=== PATIENT | male | born 1955 | race Caucasian/White ===

== ENCOUNTER → 2016-06-10 | Outpatient (CLI) | payer BC ==
[~2016-06-10] MED LIST: EPP3/2 IM; OXYC-57 PO; TAMS0.4C38 PO
--- NOTE | 2016-06-10 13:05 | DIAGNOSTIC IMAGING REPORT ---
KUB CLINICAL HISTORY: Nephrolithiasis. COMPARISON STUDY: None. FINDINGS: Note is made of a 1.1 cm calculus within the lower pole of the right kidney. A subtle 2 mm calcific density within the left hemipelvis is indeterminate. The bowel gas pattern is normal. IMPRESSION: 1. 1.1 cm right renal calculus. 2. Faint 2 mm left pelvic calcification. This statistically represents a phlebolith although a distal left ureteral calculus could appear similar. Electronically signed by: Manuel Addison M.D. 06/10/2016 1:03 PM Dictated Date/Time: 06/10/2016 1:01 PM
== END | disposition home or self-care (01) ==
LOC: C.RAD 12:46
PROVIDERS: ATTEND Urology
DX: N20.0 Calculus of kidney (principal); N28.89 Other specified disorders of kidney and ureter

== ENCOUNTER → 2016-06-25 | Outpatient (CLI) | payer BC ==
--- NOTE | 2016-06-25 15:10 | DIAGNOSTIC IMAGING REPORT ---
KUB CLINICAL HISTORY: N20.0 Nephrolithiasis COMPARISON STUDY: 06/10/2016 FINDINGS: There is a stable 11 mm lower pole right renal calculus. There is no pathologic bowel dilatation. There are few tiny nonspecific pelvic basin calcifications. These include a linear 3 mm right pelvic basin calcification which was not visualized with certainty on the prior study IMPRESSION: 1. 11 mm lower pole right renal calculus 2. Indeterminate pelvic basin calcifications Electronically signed by: Osbaldo Queen M.D. 06/25/2016 3:09 PM Dictated Date/Time: 06/25/2016 3:08 PM
== END | disposition home or self-care (01) ==
LOC: C.RAD 14:51
PROVIDERS: ATTEND Urology
DX: N20.0 Calculus of kidney (principal)

== ENCOUNTER → 2016-06-26 | Day surgery (SDC) | payer BC ==
[2016-06-15 13:01] VITALS: Ht 172.7 cm; Wt 111.4 kg
--- NOTE | 2016-06-23 10:15 | DIAGNOSTIC IMAGING REPORT ---
TWO VIEW CHEST CLINICAL HISTORY: Preoperative examination. Nephrolithiasis. FINDINGS: PA and lateral chest radiographs are obtained. No prior studies are available for comparison at the time of dictation. The heart is normal for projection. The mediastinal contour is within normal limits. There is mild atherosclerotic calcification of the thoracic aorta. There is mild elevation of the right hemidiaphragm. The lungs and pleural spaces are clear. There is no pneumothorax. The bony thorax appears intact. There is S-shaped thoracolumbar scoliosis. IMPRESSION: No active disease in the chest. Electronically signed by: Johnson Peoples M.D. 06/23/2016 10:14 AM Dictated Date/Time: 06/23/2016 10:12 AM
[2016-06-23 10:18] LABS: BASO % 0.3 %; BASO ABS # 0.02 K/uL (0-0.2); COMPLETE YES; EOS % 2.2 %; HEMATOCRIT 44.6 % (42-52); IG% 0.3 %; LYMPH % 30.2 %; MEAN CELL VOLUME 86.9 fL (80-100); MEAN CORPUSCULAR HEMOGLOBIN 29.4 pg (25-34); MEAN CORPUSCULAR HGB CONC 33.9 g/dl (32-36); MEAN PLATELET VOLUME 9.8 fL (7.4-10.4); MONO % 7.4 %; NEUT % 59.6 %; PLATELET COUNT 270 K/uL (130-400); RED BLOOD COUNT 5.13 M/uL (4.7-6.1); WHITE BLOOD COUNT 7.28 K/uL (4.8-10.8)
[2016-06-23 10:21] LABS: URINE APPEARANCE CLEAR (CLEAR); URINE BILIRUBIN NEG (NEG); URINE COLOR YELLOW; URINE NITRITE NEG (NEG); UROBILINOGEN NEG (NEG)
[2016-06-23 10:31] LABS: MANUAL MICROSCOPIC REQUIRED? NO; REVIEW REQ? NO
[2016-06-23 10:45] LABS: BLOOD UREA NITROGEN 18 mg/dl (7-18); CALCIUM 9.2 mg/dl (8.5-10.1); CARBON DIOXIDE 25 mmol/L (21-32); CHLORIDE 107 mmol/L (98-107); GLUCOSE 108 mg/dl (70-99); SODIUM 140 mmol/L (136-145)
[2016-06-23 10:49] LABS: PROSTATE SPECIFIC ANTIGEN < 0.010 ng/ml (0.000-4.000)
[~2016-06-26] VITALS: Ht 172.7 cm; Wt 111.4 kg
[~2016-06-26] MED LIST changes: +ATROPINE SULFATE 0.1 MG/ML 5ML SYR IV PRN; +CIPROFLOXACIN 400MG / D5W IV SCH; +DEXAMETHASONE SOD INJ 4 MG/ML VIAL IV PRN; +DEXAMETHASONE SOD INJ 4 MG/ML VIAL ONE; +EpHEDrine SULFATE INJ 50 MG/ML AMP IV PRN; +FENTANYL CITRATE INJ 50 MCG/1 ML 2 ML VIAL IV PRN; +FENTANYL CITRATE INJ 50 MCG/1 ML 2 ML VIAL ONE; +KETOROLAC TROMETHAMINE 30 MG/ML VIAL IV. PRN; +LABETALOL HCL IV 5 MG/ML 20ML IV PRN; +LACTATED RINGER'S 1000ML 1,000 ML IV SCH; +LIDOCAINE HCL 2% 2 ML VIAL (20MG/ML) ONE; +METOCLOPRAMIDE HCL INJ 5 MG/ML 2 ML VIAL IV PRN; +MIDAZOLAM HCL 1 MG/ML 2ML VIAL ONE; +MoRPHine SULFATE 10 MG/ML CARP/VIAL IV PRN; +ONDANSETRON INJ 2 MG/ML 2 ML VIAL IV PRN; +ONDANSETRON INJ 2 MG/ML 2 ML VIAL ONE; +OXYCODONE/ACETAMINOPHEN 5-325 TAB PO PRN; +PHENYLEPHRINE 100MCG/ML 5ML SYR IV PRN; +PROPOFOL IV EMULSION 10 MG/ML 20 ML VIAL IV ONE
--- NOTE | 2016-06-26 10:55 | History & Physical Bridge Note ---
H&P Re-Evaluation Bridge Note: I have examined the patient, reviewed the History & Physical and in the interval since the performance of the History & Physical I have noted the following changes of clinical significance: No changes noted
--- NOTE | 2016-06-26 11:33 | [facility] Post Operative Brief Note ---
Immediate Operative Summary Operative Date Jun 26, 2016. Pre-Operative Diagnosis RIGHT RENAL STONE Post-Operative Diagnosis SAME Procedure(s) Performed RIGHT ESWL Surgeon COLTON Floors Buffer Surgeon(s) NONE Estimated Blood Loss NONE Findings RIGHT RENAL STONE Specimens NONE
--- NOTE | 2016-06-26 11:36 | Discharge Instructions-SurgCtr ---
Discharge Instructions Visit Reason for Visit: Stones;Prostate Cancer R61;N20.0, Discharge Discharge Diagnosis / Problem: STONE Discharge Goals Goal(s): Therapeutic intervention Activity Recommendations Activity Limitations: resume your previous activity (TAKE IT EASY TODAY) Anesthesia . Post Anesthesia Instructions: If you have had General Anesthesia or IV Sedation: * Do not drive today. * Resume driving when surgeon permits. * Do not make important decisions or sign legal documents today. * Call surgeon for: 1. Temperature elevations greater than 101 degrees F. 2. Uncontrollable pain. 3. Excessive bleeding. 4. Persistent nausea and vomiting. 5. Medication intolerance (nausea, vomiting or rash). * For nausea and vomiting use only clear liquids such as: tea, soda, bouillon until nausea subsides, then gradually increase diet as tolerated. * If you have any concerns or questions, call your surgeon's office. If physician is unavailable and it is an emergency, call 911 or go to the nearest emergency room. . Instructions / Follow-Up Instructions / Follow-Up MEDICATIONS: Resume previous medications unless instructed otherwise by your surgeon. Resume pre-ESWL medication except for aspirin, coumadin or other blood thinners. __ Toradol 10 mg every 6 hours for initial pain. __ Lortab 5 mg 1-2 every 4 hours for pain. _X_ Percocet 5 mg 1-2 every 4 hours for pain. __ Macrodantin 50 mg x 3 a day. _X_ Flomax 1 tab daily one half (1/2) hour after supper. SPECIAL CARE INSTRUCTIONS: 1. Get KUB (x-ray) _X_ day before or day of office visit and bring x-ray to office __ get x-ray 2 days before and tell office you are getting x-rays when you call for the appointment. 2. Strain ALL urine. 3. Please call if you have a fever, chills, severe pain, or constant dribbling of urine. 4. Office phone number . FOLLOW UP VISIT: Please call the office to schedule a follow-up appointment at . Diet Recommendations Home Diet: resume previous diet Procedures Procedures Performed: RIGHT ESWL Pending Studies Studies pending at discharge: no Medical Emergencies . Who to Call and When: Medical Emergencies: If at any time you feel your situation is an emergency, please call 911 immediately. . Non-Emergent Contact Non-Emergency issues call your: Urologist . . "Provider Documentation" section prepared by Johnny Lauren. [facility] Drug Monitoring Program Search Results: patient reviewed within database
[2016-06-26 13:14] VITALS: TEMP 36.8
[2016-06-26 13:37] VITALS: BP 124/82; PULSE 77; O2SAT 96
--- NOTE | 2016-06-26 13:43 | Anesthesia Progress Nt - [facility] ---
Anesthesia Post Op Note Date & Time Jun 26, 2016 at 13:43 Vital Signs Pain Intensity: 0 Vital Signs Past 12 Hours Date Time Temp Pulse Resp B/P Pulse Ox O2 Delivery O2 Flow Rate FiO2 06/26/16 13:37 77 16 124/82 96 Room Air 06/26/16 13:14 36.8 72 16 145/89 95 Room Air 06/26/16 13:04 79 23 06/26/16 13:04 79 23 96 06/26/16 13:04 36.4 71 20 129/75 95 Room Air 06/26/16 13:03 129/75 06/26/16 12:59 81 14 128/73 95 06/26/16 12:59 83 14 06/26/16 12:54 66 14 06/26/16 12:54 65 14 94 06/26/16 12:53 106/71 06/26/16 12:49 73 15 93 06/26/16 12:49 72 15 06/26/16 12:48 123/73 06/26/16 12:44 74 14 94 06/26/16 12:44 74 14 06/26/16 12:43 108/73 06/26/16 12:39 71 14 100 06/26/16 12:39 71 14 06/26/16 12:38 118/79 06/26/16 12:35 74 14 06/26/16 12:35 74 14 99 06/26/16 12:33 129/82 06/26/16 12:30 86 15 06/26/16 12:30 36.4 81 16 132/77 98 Diffusion Mask 6 06/26/16 12:30 84 15 06/26/16 10:01 36.4 73 16 166/102 98 Room Air Notes Mental Status: alert / awake / arousable, participated in evaluation Pt Amnestic to Procedure: Yes Nausea / Vomiting: adequately controlled Pain: adequately controlled Airway Patency, RR, SpO2: stable & adequate BP & HR: stable & adequate Hydration State: stable & adequate Anesthetic Complications: no major complications apparent
--- NOTE | 2016-06-30 18:46 | OPERATIVE REPORT ---
DATE OF OPERATION: 06/26/2016 PREOPERATIVE DIAGNOSIS: Right renal calculus. POSTOPERATIVE DIAGNOSIS: Same. PROCEDURE: Extracorporeal shockwave lithotripsy. FINDINGS: KUB showed stone right kidney. SURGEON: Dr. Lauren. ANESTHESIA: General. DRAINS: None. COMPLICATIONS: None. SPECIMENS: None. INDICATIONS: The patient is a 60-year-old white male with a right renal stone being brought in for ESWL. DETAILS OF PROCEDURE: The patient was brought to the litho suite. He was correctly identified and the stone was visualized on his most recent x-rays. After the correct time out was performed the patient was positioned over the therapy head. An adequate level of anesthesia was administered. The extracorporeal shockwave lithotripsy treatment was then commenced. Please see the [facility] sheet for complete treatment summary. After completion of the procedure the patient was taken to the recovery room in stable condition. I attest to the content of the Intraoperative Record and any orders documented therein. Any exceptio ns are noted below.
== END | disposition home or self-care (01) ==
LOC: X.SURG 09:49
PROVIDERS: ATTEND Urology
DX: N20.0 Calculus of kidney (principal); R32 Unspecified urinary incontinence; Z85.46 Personal history of malignant neoplasm of prostate; Z98.890 Other specified postprocedural states; Z79.82 Long term (current) use of aspirin

== ENCOUNTER → 2016-07-08 | Outpatient (CLI) | payer BC ==
[~2016-07-08] MED LIST changes: -ATROPINE SULFATE 0.1 MG/ML 5ML SYR IV PRN; -CIPROFLOXACIN 400MG / D5W IV SCH; -DEXAMETHASONE SOD INJ 4 MG/ML VIAL IV PRN; -DEXAMETHASONE SOD INJ 4 MG/ML VIAL ONE; -EpHEDrine SULFATE INJ 50 MG/ML AMP IV PRN; -FENTANYL CITRATE INJ 50 MCG/1 ML 2 ML VIAL IV PRN; -FENTANYL CITRATE INJ 50 MCG/1 ML 2 ML VIAL ONE; -KETOROLAC TROMETHAMINE 30 MG/ML VIAL IV. PRN; -LABETALOL HCL IV 5 MG/ML 20ML IV PRN; -LACTATED RINGER'S 1000ML 1,000 ML IV SCH; -LIDOCAINE HCL 2% 2 ML VIAL (20MG/ML) ONE; -METOCLOPRAMIDE HCL INJ 5 MG/ML 2 ML VIAL IV PRN; -MIDAZOLAM HCL 1 MG/ML 2ML VIAL ONE; -MoRPHine SULFATE 10 MG/ML CARP/VIAL IV PRN; -ONDANSETRON INJ 2 MG/ML 2 ML VIAL IV PRN; -ONDANSETRON INJ 2 MG/ML 2 ML VIAL ONE; -OXYCODONE/ACETAMINOPHEN 5-325 TAB PO PRN; -PHENYLEPHRINE 100MCG/ML 5ML SYR IV PRN; -PROPOFOL IV EMULSION 10 MG/ML 20 ML VIAL IV ONE; -TAMS0.4C38 PO
--- NOTE | 2016-07-08 09:56 | DIAGNOSTIC IMAGING REPORT ---
KUB CLINICAL HISTORY: N20.0 [id number] COMPARISON STUDY: 06/25/2016 FINDINGS: There is no pathologic bowel dilatation. There is been interval fragmentation of the previously identified lower pole right renal calculus. Multiple calcific fragments project over the lower pole the right kidney. In addition, there is a cluster of calcifications measuring 1 cm in aggregate at the L2-3 level. The findings are consistent with proximal right ureteral calculi. IMPRESSION: 1. Apparent interval fragmentation of the previously identified lower pole right renal calculus 2. Multiple stone fragments, likely positioned at the level of the right ureterovesical junction at the L2-3 level. Electronically signed by: Osbaldo Queen M.D. 07/08/2016 9:55 AM Dictated Date/Time: 07/08/2016 9:53 AM
== END | disposition home or self-care (01) ==
LOC: C.RAD 09:28
PROVIDERS: ATTEND Urology
DX: N20.0 Calculus of kidney (principal)

== ENCOUNTER → 2016-07-20 | Outpatient (CLI) | payer BC | END | disposition home or self-care (01) | LOC: C.RDSM 14:34 | PROVIDERS: ATTEND Physical Medicine & Rehabilitation Sports Medicine | DX: M25.561 Pain in right knee (principal); M25.562 Pain in left knee ==

== ENCOUNTER → 2016-10-28 | Outpatient (CLI) | payer BC ==
--- NOTE | 2016-10-28 14:45 | DIAGNOSTIC IMAGING REPORT ---
RIGHT KNEE MRI HISTORY: R KNEE PAIN Right COMPARISON STUDY: Right knee 07/20/2016. TECHNIQUE: Multiplanar multisequence MRI of the right knee was performed according to standard department protocol without the use of contrast. FINDINGS: Menisci: The lateral meniscus is intact. The complex tear at the posterior horn of the medial meniscus. There is a small meniscal fragment along the superior border of the posterior horn of the medial meniscus near the meniscal root. This measures approximately 7 mm in size. This is best seen on coronal image 22 and sagittal image 14. Ligaments: Mild thickening of the proximal MCL which may be due to an old injury. The ACL, PCL, and LCL are intact. Extensor mechanism: The quadriceps tendon and patellar ligament are intact. Articular cartilage and bone: No fracture or dislocation. Focal full-thickness cartilage defect within the median ridge of the patella measuring 7 mm in size. There is underlying subchondral cystic change within the mid patella. The medial and lateral femorotibial cartilage compartments of the knee are relatively intact. Joint effusion: Small to moderate Soft tissues: A 5.8 x 2.6 x 1.2 cm popliteal cyst. Diffuse subcutaneous edema within the knee. This is most pronounced anterior to the patellar ligament. IMPRESSION: 1. Complex tear within the posterior horn of the medial meniscus with a small fragment along the superior border of the posterior horn of the meniscus as described above. 2. Patellar chondromalacia. 3. The patellar ligament is intact. 4. Small to moderate joint effusion. 5. Mild thickening within the proximal MCL which favors an old injury. 6. Diffuse subcutaneous edema most pronounced within the anterior knee. Electronically signed by: Jim Swanson M.D. 10/28/2016 2:43 PM Dictated Date/Time: 10/28/2016 2:33 PM
== END | disposition home or self-care (01) ==
LOC: C.MRI 13:34
PROVIDERS: ATTEND Physician Assistant
DX: M25.561 Pain in right knee (principal)

== ENCOUNTER → 2017-04-01 | Outpatient (CLI) | payer BC ==
[~2017-04-01] MED LIST changes: -OXYC-57 PO
== END | disposition home or self-care (01) ==
LOC: C.RDSM 12:51
PROVIDERS: ATTEND Physical Medicine & Rehabilitation Sports Medicine
DX: M17.11 Unilateral primary osteoarthritis, right knee (principal); M25.562 Pain in left knee

== ENCOUNTER 2018-09-26 07:59 | Inpatient (IN) ==
[2018-09-26] MEDS ORDERED: MoRPHine SULFATE 4 MG/ML 1 ML CARP\\VIAL IV PRN (08:46)
[2018-09-26 08:56] LABS: Basophils # (auto) 0.01 K/uL (0-0.2); Basophils % (auto) 0.1 %; Eosinophils # (auto) 0.42 K/uL (0-0.5); Eosinophils % (auto) 5.2 %; Hematocrit (blood only) 42.1 % (42-52); Hemoglobin 14.7 g/dL (14.0-18.0); Immature Granulocytes # (auto) 0.02 K/uL (0.00-0.02); Immature Granulocytes % (auto) 0.2 %; Lymphocytes # (auto) 2.37 K/uL (1.2-3.4); Lymphocytes % (auto) 29.3 %; Mean Corpuscular Hgb Conc 34.9 g/dL (32-36); Mean Platelet Volume 9.7 fL (7.4-10.4); Monocytes # (auto) 0.72 K/uL (0.11-0.59); Monocytes % (auto) 8.9 %; Neutrophils # (auto) 4.55 K/uL (1.4-6.5); Neutrophils % (auto) 56.3 %; Platelet Count 257 K/uL (130-400); RDW Standard Deviation 44.6 fL (36.4-46.3); Red Blood Count 4.84 M/uL (4.7-6.1); White Blood Count 8.09 K/uL (4.8-10.8)
[2018-09-26 09:03] LABS: BUN Creatinine Ratio 24.6 (10-20); Calcium 8.9 mg/dl (8.5-10.1); Creatinine Clr Calc Pharmacy 122.7 ml/min; Est GFR (African American) 110.8; Est GFR (Non-African American) 95.6; Potassium 4.2 mmol/L (3.5-5.1)
--- NOTE | 2018-09-26 09:41 | Emergency Department Note ---
History of Present Illness General Chief complaint: Back Injury/Pain Stated complaint: leg & back pain Time Seen by Provider: 09/26/18 08:27 History of Present Illness Maximum Pain Intensity: 2 Patient is a 63-year-old male who presents the emergency department via ALS ambulance and accompanied by his for evaluation of the abrupt onset of left low back pain radiating into the left leg this morning. The patient has been experiencing some radicular low back pain since the end of August. He has been under the care of [facility]. He had an MRI on 09/14/2018 which showed a L2-L3 disc herniation with fragment extrusion. He underwent an epidural steroid injection performed by Dr. Cottrell on 09/22/2018. He has been on Aleve, baclofen and gabapentin. Patient reports that he was doing well in the first few days after the injection, then had some increased achiness yesterday. He was getting up this morning to get ready for work, when he states that the pain returned and was much worse than prior to his injection. He reports an aching pain in his low back that radiates down his left leg. He reports weakness in his left quad, and has some chronic numbness in the left lower extremity. He states that the pain was an 8/10 at home, he received morphine 5 mg and Zofran 4 mg IV en route and he is now comfortable, rating his pain a 2/10. He has stress urinary incontinence status post prostatectomy for prostate cancer, denies any changes in this. No gross bowel or bladder incontinence. No saddle anesthesias. He states that he did review his MRI with Dr. Laboy. Home Medications Home Medications Medication Instructions Recorded Confirmed Type baclofen 10 mg tablet 10 mg PO BID PRN #60 tab 09/07/18 09/26/18 Rx naproxen sodium 220 mg capsule 220 mg PO BID PRN 09/07/18 09/26/18 History gabapentin 100 mg capsule 200 mg PO TID #180 cap 09/16/18 09/26/18 Rx Allergies Allergy/AdvReac Type Severity Reaction Status Date / Time cheese Allergy Severe SHARP Verified 09/26/18 10:50 CHEESE: HIVES AND SOB No Known Drug Allergies Allergy Mild . Verified 09/26/18 10:50 Past Med/Surg History Medical History Lumbar back pain with radiculopathy affecting left lower extremity (Chronic) Obesity (Chronic) Prostate cancer (Resolved) Status post prostatectomy 2010 Fracture dislocation of joint of toe of right foot (Resolved) Patellar tendon rupture (Resolved) Left side, status post surgical repair Renal stones (Resolved) Surgical History History of arthroscopy of left knee (Resolved) History of carpal tunnel release (Resolved) Right History of lithotripsy (Resolved) History of orthopedic surgery (Resolved) Right ankle arthroscopy History of tonsillectomy (Resolved) Family History Father No problems noted. Social History Preferred Language: Maltese marital status: Current Living Situation: Spouse current occupational status: employed Feels Safe at Home: Yes Smoking Status: Never smoker Hx Alcohol Use: Yes Alcohol type: beer Hx Substance Use: No Review of Systems A total of 10 systems reviewed and were otherwise negative Physical Exam Vital Signs Vital Signs - 24 hr 09/26/18 07:59 09/26/18 09:13 09/26/18 10:08 Temperature 36.5 C Temperature Source Oral Sepsis Recent Fever Within 48 Hours No Sepsis New/Unexplained Change in Mental Status No Sepsis Action Taken by Nursing No Action Required Pulse Rate 73 Pulse Rate [Right Finger] 73 66 118 H Pulse Rhythm [Right Finger] Pulse Strength [Right Finger] Respiratory Rate 18 20 24 Respiratory Effort / Characteristics Non-Labored Spontaneous Non-Labored Respiratory Depth Normal Normal Respiratory Pattern Regular Blood Pressure 144/94 H Blood Pressure [Left Arm] 144/94 H 157/92 H 149/92 H Blood Pressure Mean 110 Blood Pressure Mean [Left Arm] 110 113 111 Blood Pressure Position Lying Blood Pressure Position [Left Arm] Lying Pulse Oximetry 95 95 99 Oxygen Delivery Method Room Air Room Air Room Air 09/26/18 12:23 09/26/18 12:56 Temperature 36.3 C L Temperature Source Oral Sepsis Recent Fever Within 48 Hours Sepsis New/Unexplained Change in Mental Status Sepsis Action Taken by Nursing Pulse Rate Pulse Rate [Right Finger] 63 69 Pulse Rhythm [Right Finger] Regular Pulse Strength [Right Finger] Normal Respiratory Rate 16 18 Respiratory Effort / Characteristics Non-Labored Spontaneous Respiratory Depth Normal Respiratory Pattern Regular Blood Pressure Blood Pressure [Left Arm] 132/83 147/75 H Blood Pressure Mean Blood Pressure Mean [Left Arm] 99 99 Blood Pressure Position Blood Pressure Position [Left Arm] Standing Pulse Oximetry 95 94 Oxygen Delivery Method Room Air Room Air PHYSICAL EXAM: Vital Signs: Reviewed Nurse's notes. CONSTITUTIONAL: Patient is a well-appearing 63-year-old male who is awake and alert and in no acute distress. is at the bedside. CARDIOVASCULAR: Regular rate and rhythm, with normal S1 and S2, no murmur or gallop or rub is heard. No carotid bruits auscultated. No JVD. Peripheral pulses easily palpable. RESPIRATORY: Breath sounds equal and clear to auscultation without wheezes, rales, or rhonchi heard. Full and equal chest expansion without accessory muscle use or retractions. ABDOMEN: Bowel sounds are present. Abdomen is soft, nontender and nondistended. INTEGUMENTARY: No lesions or rash, normal skin turgor. LYMPH: No lymphadenopathy. SPINE: Examination of the patient's back does not demonstrate any ecchymosis, abrasions or outward signs of trauma. No erythema, increased warmth or induration. Patient has midline discomfort to palpation over the low lumbar spine. There is no pain over the SI joint or the sciatic notch. He has increa sed pain with range of motion including rotation and flexion. EXTREMITIES: Leg lengths are symmetrical. Well-healed anterior left knee surgical scar. Calves are soft and nontender. Distal pulses are easily palpable. Left patellar reflex difficult to assess secondary to postsurgical status. Sensation light touch is intact over the lower extremities bilaterally. Course The patient was seen and assessed as above. His old records were reviewed, specifically his recent MRI and pain management visits. He presents the emergency department for evaluation of left low back pain radiating into the left leg with a known L2-3 disc herniation. He is comfortable at the time of my examination after receiving morphine and Zofran en route. He declined any additional medication needs at the time of assessment. Treatment options were discussed with him including medications including IV NSAIDs and steroids. He would like to consult with Dr. Laboy of orthopedic spine surgery, which is certainly reasonable. The patient was made n.p.o. Basic laboratory studies, EKG and chest x-ray were obtained for presumptive preoperative clearance. I was able to review the patient with Dr. Laboy, who requested repeat MRI which was ordered. The patient was made aware of this. The patient was medicated with additional morphine 4 mg and Valium 5 mg IV prior to MRI. Patient's preoperative chest x-ray, EKG and laboratory studies were all reviewed and were unremarkable. Lumbar spine MRI again demonstrated mild broad-based disc herniation at L2-L3 with a 1.2 cm extruded fragment occupying the left lateral recess. It appears to be unchanged from prior study. At this point, emergency department staff were contacted by the operating room, as there are plans for surgical intervention today. Patient will be taken to the OR by Dr. Laboy. Please refer to his H&P for further information. Administered Medications Discontinued Medications Diazepam (Valium) 5 mg IV NOW STA Stop: 09/26/18 10:57 Last Admin: 09/26/18 11:03 Dose: 5 mg Documented by: [id number] Morphine Sulfate (Morphine Sulfate) 4 mg IV NOW STA Stop: 09/26/18 10:57 Last Admin: 09/26/18 11:03 Dose: 4 mg Documented by: [id number] Medical Decision Making Differential Diagnosis Differential diagnoses include disc herniation, acute compression syndrome, cauda equina, diskitis, epidural abscess, hematoma among others. Medical Records Attestation: I reviewed the patient's medical records. Home Medications Current Medication List: was personally reviewed by me Laboratory Data Attestation: I reviewed the patient's lab results. Result diagrams: 09/26/18 08:05 09/26/18 08:05 Lab Results 09/26/18 09/26/18 09/26/18 Range/Units 08:05 08:05 08:05 WBC 8.09 (4.8-10.8) K/uL RBC 4.84 (4.7-6.1) M/uL Hgb 14.7 (14.0-18.0) g/dL Hct 42.1 (42-52) % MCV 87.0 (80-100) fL MCH 30.4 (25-34) pg MCHC 34.9 (32-36) g/dL RDW Std Deviation 44.6 (36.4-46.3) fL RDW Coeff of Barak 14.0 (11.5-14.5) % Plt Count 257 (130-400) K/uL MPV 9.7 (7.4-10.4) fL Immature Gran % (Auto) 0.2 % Neut % (Auto) 56.3 % Lymph % (Auto) 29.3 % Kaufman % (Auto) 8.9 % Eos % (Auto) 5.2 % Baso % (Auto) 0.1 % Immature Gran # (Auto) 0.02 (0.00-0.02) K/uL Neut # (Auto) 4.55 (1.4-6.5) K/uL Lymph # (Auto) 2.37 (1.2-3.4) K/uL [place]aufman # (Auto) 0.72 H (0.11-0.59) K/uL Eos # (Auto) 0.42 (0-0.5) K/uL Baso # (Auto) 0.01 (0-0.2) K/uL PT Cancelled INR Cancelled APTT Cancelled PTT Ratio Cancelled Sodium 141 (136-145) mmol/L Potassium 4.2 (3.5-5.1) mmol/L Chloride 109 H (98-107) mmol/L Carbon Dioxide 26 (21-32) mmol/L Anion Gap 6.0 (3-11) BUN 19 H (7-18) mg/dl Creatinine 0.79 (0.6-1.4) mg/dl Est Cr Clr Drug Dosing 122.7 ml/min Est GFR ( Amer) 110.8 Est GFR (Non-Af Amer) 95.6 BUN/Creatinine Ratio 24.6 H (10-20) Glucose 118 H (70-99) mg/dl Calcium 8.9 (8.5-10.1) mg/dl Urine Color Urine Appearance (Clear) Urine pH (4.5-7.5) Ur Specific [place] (1.000-1.030) Urine Protein (Negative) Urine Glucose (UA) (Negative) Urine Ketones (Negative) Urine Blood (Negative) Urine Nitrite (Negative) Urine Bilirubin (Negative) Urine Urobilinogen (Negative) Ur Leukocyte Esterase (Negative) 09/26/18 Range/Units 11:05 WBC (4.8-10.8) K/uL RBC (4.7-6.1) M/uL Hgb (14.0-18.0) g/dL Hct (42-52) % MCV (80-100) fL MCH (25-34) pg MCHC (32-36) g/dL RDW Std Deviation (36.4-46.3) fL RDW Coeff of Barak (11.5-14.5) % Plt Count (130-400) K/uL MPV (7.4-10.4) fL Immature Gran % (Auto) % Neut % (Auto) % Lymph % (Auto) % Kaufman % (Auto) % Eos % (Auto) % Baso % (Auto) % Immature Gran # (Auto) (0.00-0.02) K/uL Neut # (Auto) (1.4-6.5) K/uL Lymph # (Auto) (1.2-3.4) K/uL [place] # (Auto) (0.11-0.59) K/uL Eos # (Auto) (0-0.5) K/uL Baso # (Auto) (0-0.2) K/uL PT INR APTT PTT Ratio Sodium (136-145) mmol/L Potassium (3.5-5.1) mmol/L Chloride (98-107) mmol/L Carbon Dioxide (21-32) mmol/L Anion Gap (3-11) BUN (7-18) mg/dl Creatinine (0.6-1.4) mg/dl Est Cr Clr Drug Dosing ml/min Est GFR ( Amer) Est GFR (Non-Af Amer) BUN/Creatinine Ratio (10-20) Glucose (70-99) mg/dl Calcium (8.5-10.1) mg/dl Urine Color Yellow Urine Appearance Clear (Clear) Urine pH 6.5 (4.5-7.5) Ur Specific [place] 1.019 (1.000-1.030) Urine Protein Negative (Negative) Urine Glucose (UA) Negative (Negative) Urine Ketones Negative (Negative) Urine Blood Negative (Negative) Urine Nitrite Negative (Negative) Urine Bilirubin Negative (Negative) Urine Urobilinogen Negative (Negative) Ur Leukocyte Esterase Negative (Negative) Imaging Data Attestation: I personally reviewed and interpreted this imaging study as follows: Radiologist's Impression: MR lumbar spine wo con HISTORY: Pain. Neuropathy. LEFT LUMBAR RADICULOPATHY TECHNIQUE: Multiplanar multisequence MRI of the lumbar spine was performed without the use of contrast. COMPARISON: 09/14/2018 FINDINGS: For the purpose of the report the L5-S1 disc space will be located on axial image 26 of 30. Normal signal characteristics of the vertebral bodies. Mild degenerative disc desiccation throughout. L1-L2: No significant central canal or neural foraminal narrowing. L2-L3: Mild broad-based disc herniation with an extruded disc fragment occupying the left lateral recess. The disc fragment measures 21.2 cm and impacts the left-sided nerve roots. This appearance is unchanged from the prior exam. L3-L4: Minimal disc bulge. No impact upon the thecal sac. L4-L5: Mild central disc bulge. Minimal impact anterior thecal sac. No change from the prior study. L5-S1: Mild left central disc bulge. Minimal impact anterior thecal sac and minimal narrowing left neuroforamina. IMPRESSION: 1. Mild broad-based disc herniation L3-L4 with a 1.2 cm extruded disc fragment occupying the left lateral recess. 2. This is unchanged compared to the prior study. 3. Minimal disc bulges at several additional levels of doubtful significance clinically. 4. This study is a duplicate of the prior exam of 09/14/2018 XR chest 1V portable CLINICAL HISTORY: Preoperative evaluation. COMPARISON STUDY: Chest radiograph June 23, 2016. FINDINGS: Elevation of the right hemidiaphragm is noted. There is no pneumothorax or pleural effusion. There is no consolidation or evidence for pulmonary edema. Moderate enlargement of the cardiac silhouette is accentuated on this AP exam. IMPRESSION: 1. No acute cardiopulmonary findings. 2. Suspected mild cardiomegaly, accentuated on this AP exam. 3. Elevation of the right hemidiaphragm. ECG Data Attestation: I personally reviewed and interpreted this ECG as follows: Indication: other (PREOP) Rate (beats per minute): 63 Rhythm: normal sinus Findings: no acute ischemic change and no ectopy Change: no significant change Blood Pressure Blood Pressure Findings: Elevated blood pressure Blood Pressure Disposition: elevated BP felt to be situational MDM Narrative See ED Course. Impression & Plan Herniation of lumbar intervertebral disc with radiculopathy Discharge Plan Visit Data Chief Complaint: Back Injury/Pain Stated Complaint: leg & back pain ED Provider: Marcial Harley ED Midlevel Provider: Sandee Odell Discharge Problem: Herniation of lumbar intervertebral disc with radiculopathy Patient Disposition: Being Evaluated by Surgeon Discharge Instructions Interventions: ED Discharge Assessment Last Done: 09/26/18 12:38 Forms Stand Alone Forms: [employer] Prescriptions Prescriptions: No Action naproxen sodium [Aleve] 220 mg capsule 220 mg PO BID PRN (Reason: Pain) RF: 0 baclofen 10 mg tablet 10 mg PO BID PRN (Reason: pain/spasm) Qty: 60 RF: 0 gabapentin 100 mg capsule 200 mg PO TID Qty: 180 RF: 2 Referrals Referrals: Scout Markham [Primary Care Provider] -
--- NOTE | 2018-09-26 10:39 | XRay Report ---
XR chest 1V portable CLINICAL HISTORY: Preoperative evaluation. COMPARISON STUDY: Chest radiograph June 23, 2016. FINDINGS: Elevation of the right hemidiaphragm is noted. There is no pneumothorax or pleural effusion . There is no consolidation or evidence for pulmonary edema. Moderate enlargement of the cardiac silh ouette is accentuated on this AP exam. IMPRESSION: 1. No acute cardiopulmonary findings. 2. Suspected mild cardiomegaly, accentuated on this AP exam. 3. Elevation of the right hemidiaphragm. Electronically signed by: Manuel Addison M.D. 09/26/2018 10:37 AM
--- NOTE | 2018-09-26 10:54 | History & Physical Report ---
Date of Service September 26, 2018 Assessment & Plan (1) Lumbar back pain with radiculopathy affecting left lower extremity: At this time the patient presents with a marked decline in status and evidence of neural deficit affecting the L3 nerve root this is consistent with a herniated disc at the T3 level. In light of his sudden change would like to update a stat MRI of lumbar spine. We are strongly considering surgical intervention in light of his pain weakness and failed nonoperative care. Present on Admission?: Yes History of Present Illness Chief Complaint: Severe back and left leg pain with weakness Primary Care Provider: Scout Markham This is a 63-year-old male well-known to me that presents with marked decline in status. He does have a known herniated nucleus pulposis L2-3 on the left approximately 3 weeks ago. This was creating some radicular pain. He was treating it nonoperatively and had an epidural injection performed last week. Unfortunately this morning he had a marked decline in status. He had an immediate onset of severe pain affecting the left anterior thigh. The pain does not extend below the knee. It involves the back buttock as well. Right lower extremity symptomatic. He notes significant strength deficits involving the left quad. He is required IV narcotics this morning to control his symptoms. He denies any specific trauma fall or event. He denies any perineal numbness. Allergies Allergy/AdvReac Type Severity Reaction Status Date / Time cheese Allergy Severe SHARP Verified 09/26/18 10:50 CHEESE: HIVES AND SOB No Known Drug Allergies Allergy Mild . Verified 09/26/18 10:50 Home Medications Home Medications Medication Instructions Recorded Confirmed Type baclofen 10 mg tablet 10 mg PO BID PRN #60 tab 09/07/18 09/22/18 Rx naproxen sodium 220 mg capsule 220 mg PO BID PRN 09/07/18 09/22/18 History gabapentin 100 mg capsule 200 mg PO TID #180 cap 09/16/18 09/22/18 Rx Past Med/Surg History Medical History Lumbar back pain with radiculopathy affecting left lower extremity (Chronic) Obesity (Chronic) Prostate cancer (Resolved) Status post prostatectomy 2010 Fracture dislocation of joint of toe of right foot (Resolved) Patellar tendon rupture (Resolved) Left side, status post surgical repair Renal stones (Resolved) Surgical History History of arthroscopy of left knee (Resolved) History of carpal tunnel release (Resolved) Right History of lithotripsy (Resolved) History of orthopedic surgery (Resolved) Right ankle arthroscopy History of tonsillectomy (Resolved) Social History Preferred Language: Maori marital status: Current Living Situation: Spouse current occupational status: employed Feels Safe at Home: Yes Smoking Status: Never smoker Hx Alcohol Use: Yes Alcohol type: beer Hx Substance Use: No Physical Exam Vital Signs (Past 24 Hours): Last Vital Signs Temp 36.5 C 09/26/18 07:59 Pulse 118 H 09/26/18 10:08 Resp 24 09/26/18 10:08 BP 149/92 H 09/26/18 10:08 Pulse Ox 99 09/26/18 10:08 Physical Exam: On exam he is in obvious distress and very uncomfortable. He exhibits an excellent plus 5 out of 5 right plantar flexion dorsiflexion exte nsor hallucis longus quadriceps with a negative logroll. Sensory intact. Left lower extremity demonstrates plus 5 out of 5 extensor hallucis longus dorsiflexion plantarflexion with a 4/5 left quadricep. Marked decreased sensation sensation to the left anterior thigh compared to the right.
[2018-09-26] MEDS ORDERED: MoRPHine SULFATE 4 MG/ML 1 ML CARP\\VIAL IV STA (10:56)
[2018-09-26] MEDS ORDERED: DIAZEPAM 5 MG/ML INJ 10ML VIAL IV STA (10:56)
[2018-09-26 11:30] LABS: Appearance Urine Clear (Clear); Bilirubin Urine Negative (Negative); Blood Urine Negative (Negative); Color Urine Yellow; Glucose Urine UA Negative (Negative); Ketones Urine Negative (Negative); Leukocyte Esterase Urine Negative (Negative); Nitrite Urine Negative (Negative); Protein Urine Negative (Negative); Specific Gravity Urine 1.019 (1.000-1.030); Urobilinogen Urine Negative (Negative); pH Urine 6.5 (4.5-7.5)
--- NOTE | 2018-09-26 11:59 | Magnetic Resonance Report ---
MR lumbar spine wo con HISTORY: Pain. Neuropathy. LEFT LUMBAR RADICULOPATHY TECHNIQUE: Multiplanar multisequence MRI of the lumbar spine was performed without the use of contras t. COMPARISON: 09/14/2018 FINDINGS: For the purpose of the report the L5-S1 disc space will be located on axial image 26 of 30. Normal signal characteristics of the vertebral bodies. Mild degenerative disc desiccation throughout. L1-L2: No significant central canal or neural foraminal narrowing. L2-L3: Mild broad-based disc herniation with an extruded disc fragment occupying the left lateral rec ess. The disc fragment measures 21.2 cm and impacts the left-sided nerve roots. This appearance is un changed from the prior exam. L3-L4: Minimal disc bulge. No impact upon the thecal sac. L4-L5: Mild central disc bulge. Minimal impact anterior thecal sac. No change from the prior study. L5-S1: Mild left central disc bulge. Minimal impact anterior thecal sac and minimal narrowing left ne uroforamina. IMPRESSION: 1. Mild broad-based disc herniation L3-L4 with a 1.2 cm extruded disc fragment occupying the left lat eral recess. 2. This is unchanged compared to the prior study. 3. Minimal disc bulges at several additional levels of doubtful significance clinically. 4. This study is a duplicate of the prior exam of 09/14/2018 The above report was generated using voice recognition software. It may contain grammatical, syntax or spelling errors. Electronically signed by: Giuseppe Ponce M.D. 09/26/2018 11:57 AM
--- NOTE | 2018-09-26 12:48 | Anesthesiology Consultation ---
Date of Service September 26, 2018 Assessment & Plan (1) Encounter for pre-operative examination: Chart Review Chart Review: Acceptable Risk for Surgery and Patient NOT seen in Pre Admission Testing Consults Requested none History Surgery Operation Date: 09/26/18 09:25 Proposed Procedures p L2-L3 Left Laminectomy - Giovani Laboy DO Height/Weight Height: 5 ft 8 in Weight: 124 kg Allergies Allergy/AdvReac Type Severity Reaction Status Date / Time cheese Allergy Severe SHARP Verified 09/26/18 10:50 CHEESE: HIVES AND SOB No Known Drug Allergies Allergy Mild . Verified 09/26/18 10:50 Medications Home Medications Medication Instructions Recorded Confirmed Last Taken baclofen 10 mg tablet 10 mg PO BID PRN #60 tab 09/07/18 09/26/18 09/26/18 06:00 naproxen sodium 220 mg capsule 220 mg PO BID PRN 09/07/18 09/26/18 09/26/18 06:00 gabapentin 100 mg capsule 200 mg PO TID #180 cap 09/16/18 09/26/18 09/26/18 06:00 Past Medical History Medical History Lumbar back pain with radiculopathy affecting left lower extremity (Chronic) Obesity (Chronic) Prostate cancer (Resolved) Status post prostatectomy 2010 Fracture dislocation of joint of toe of right foot (Resolved) Patellar tendon rupture (Resolved) Left side, status post surgical repair Renal stones (Resolved) Exercise / Class Metabolic Activity II 4-5 Yardwork/Stairs/Walk up hill Past Family History Family History Father No problems noted. Past Surgical History Surgical History History of arthroscopy of left knee (Resolved) History of carpal tunnel release (Resolved) Right History of lithotripsy (Resolved) History of orthopedic surgery (Resolved) Right ankle arthroscopy History of tonsillectomy (Resolved) Past Anesthesia History No Hx of Anesthesia Complications and No Family Hx of Anesthesia Complications History of PONV No Hx of PONV and No Hx of Motion Sickness Social History Smoking Status: Never smoker Hx Alcohol Use: Yes Alcohol type: beer Hx Substance Use: No Physical Exam Vital Signs Last Vital Signs Temp 36.5 C 09/26/18 07:59 Pulse 63 09/26/18 12:23 Resp 16 09/26/18 12:23 BP 132/83 09/26/18 12:23 Pulse Ox 95 09/26/18 12:23 Testing Electrocardiogram Date: 09/26/18 Findings: + NSR @ (63) normal ecg Chest X-Ray Date: 09/26/18 Findings: + NAD, + cardiomegaly (Mild) and + R hemidiaphragm elevation Laboratory Results 09/26/18 08:05 09/26/18 08:05 PT Cancelled 09/26/18 08:05 INR Cancelled 09/26/18 08:05 APTT Cancelled 09/26/18 08:05 Urine Color Yellow 09/26/18 11:05 Urine Appearance Clear (Clear) 09/26/18 11:05 Urine pH 6.5 (4.5-7.5) 09/26/18 11:05 Ur Specific [place] 1.019 (1.000-1.030) 09/26/18 11:05 Urine Protein Negative (Negative) 09/26/18 11:05 Urine Glucose (UA) Negative (Negative) 09/26/18 11:05 Urine Ketones Negative (Negative) 09/26/18 11:05 Urine Nitrite Negative (Negative) 09/26/18 11:05 Ur Leukocyte Esterase Negative (Negative) 09/26/18 11:05
[2018-09-26] MEDS ORDERED: MIDAZOLAM HCL 1 MG/ML 2ML VIAL ONE (13:08)
[2018-09-26] MEDS ORDERED: fentaNYL citrate 100 MCG/2 ML VIAL ONE ×3 (13:08→15:17)
--- NOTE | 2018-09-26 13:25 | History & Physical Bridge Note ---
Date of Service September 26, 2018 History & Physical Bridge Note I have examined the patient, reviewed the History & Physical and in the interval since the performance of the History & Physical I have noted the following changes of clinical significance: At this time we plan to perform a laminectomy L2-3 on the left.
[2018-09-26] MEDS ORDERED: HYDROmorphone INJ 2 MG/ML SYR/VIAL ONE (13:38)
[2018-09-26] MEDS ORDERED: BACITRACIN INJ 50,000 UNIT VIAL ONE (13:40)
[2018-09-26] MEDS ORDERED: BUPIVACAINE/EPINEPHRINE 0.5% MPF 1:200,000 30 ML VIAL ONE (13:40)
[2018-09-26] MEDS ORDERED: ONDANSETRON INJ 2 MG/ML 2 ML VIAL IV PRN ×2 (14:05→16:54)
[2018-09-26] MEDS ORDERED: ATROPINE SULFATE 0.1 MG/ML 10ML SYR IV PRN (14:05)
[2018-09-26] MEDS ORDERED: HYDROmorphone INJ 1 MG/ML SYRINGE IV PRN (14:05)
[2018-09-26] MEDS ORDERED: ePHEDrine sulfate 50 MG/ML AMP IV PRN (14:05)
[2018-09-26] MEDS ORDERED: DEXAMETHASONE SOD INJ 4 MG/ML VIAL ONE (14:11)
[2018-09-26] MEDS ORDERED: PROPOFOL IV EMULSION 10 MG/ML 20 ML VIAL IV ONE (14:11)
[2018-09-26] MEDS ORDERED: LIDOCAINE HCL 2% 2 ML VIAL/AMP(20MG/ML) INFIL ONE (14:11)
[2018-09-26] MEDS ORDERED: ONDANSETRON INJ 2 MG/ML 2 ML VIAL ONE ×2 (14:11→15:22)
[2018-09-26] MEDS ORDERED: CEFAZOLIN 250 MG/ML 1 GM VIAL ONE (14:11)
[2018-09-26] MEDS ORDERED: ROCURONIUM BROMIDE 10 MG/ML 5 ML VIAL ONE (14:11)
[2018-09-26] MEDS ORDERED: FLOSEAL HEMOSTATIC MATRIX 10ML TOP ONE (14:12)
[2018-09-26] MEDS ORDERED: CEFAZOLIN 3000MG 72.5 ML IV ONE (14:13)
[2018-09-26] MEDS ORDERED: SURGICEL ABSORB HEMOSTAT 2IN X 14IN TOP ONE (15:10)
--- NOTE | 2018-09-26 15:19 | Operative Report ---
Post Operative Report Pre & Post Diagnosis Operation Date: 09/26/18 09:25 Pre-Op Diagnosis: Herniated nucleus pulposus L2-3 on the left with radiculopathy and motor deficit Post-Op Diagnosis: Same Procedure Operation Date: 09/26/18 09:25 Actual Procedures Lumbar laminotomy L2-3 on the left with medial facetectomy and excision of herniated free fragment Surgeon Giovani Laboy, Manager Project Management Fariba Oh Estimated Blood Loss 100 Findings See Below Patient is 5 foot 8 inches and 124 kg with a BMI of 41.6. Patient's morbid obesity contributed to significant technical difficulty adding at least 50% increase in operative time. Specimens None Indications This is a 63-year-old male well-known to me that presents with known herniated nucleus pulposus L2 through on the left with marked decline in status and deficits in quadricep strength. Subsequently he is undergoing above-mentioned procedure. Description of Procedure Patient was met with identified and informed consent obtained. He was then taken to the operative suite underwent intubation placed in a prone position on the Shady table on top of the Hossein frame. All bony prominences well-padded eyes inspected to ensure no external pressure placed upon the. This point the lumbar spine was prepped and draped in a normal sterile fashion. With the assistance of fluoroscopy identified the L2-3 disc space and a midline incision was created overlying this region. Sharp dissection with the assistance of Bovie cautery was performed down to and exposing the interlaminar space at L2-3 on the left. Self-retaining retractors placed. Then performed a laminotomy excising the lateral portion of the ligamentum flavum as well as the medial facet. I also remove the superior border of L3 to expose it markedly compressed traversing L3 nerve root. It was mobilized medially and several fragments of loose disc material identified and removed creating significant decompression. The area incision was then copiously irrigated and closed with 1 Vicryl in the fascia 2-0 Vicryl subcutaneous layer and 4 Monocryl for final skin closure. Steri-Strip sterile dressing placed. Patient awakened taken to PACU in a stable condition. Please note Fariba Oh present throughout the entire procedure involved in patient positioning complex portions of the surgery and final skin closure. I attest to the content of the Intraoperative Record and any orders documented therein. Any exceptions are noted below.
--- NOTE | 2018-09-26 15:36 | Fluoroscopy Report ---
FL spine 1V any level HISTORY: Pain. FLUOROSCOPY TIME: 6 seconds. FINDINGS: Intraoperative fluoroscopy was provided for the lumbar spine. 1 fluoroscopic spot images we re obtained. IMPRESSION: Fluoroscopy provided for a lumbar laminectomy. The above report was generated using voice recognition software. It may contain grammatical, syntax or spelling errors. Electronically signed by: Giuseppe Ponce M.D. 09/26/2018 3:34 PM
--- NOTE | 2018-09-26 16:07 | Anesthesiology Progress Note ---
Date of Service September 26, 2018 Anesthesia Post Procedure Vital Signs Vital Signs: Temp Pulse Pulse Pulse Resp BP BP 09/26/18 15:55 81 16 09/26/18 15:45 36.1 C L 92 H 16 09/26/18 15:38 36.1 C L 87 16 09/26/18 12:56 36.3 C L 69 18 147/75 H 09/26/18 12:23 63 16 132/83 09/26/18 10:08 118 H 24 149/92 H 09/26/18 09:13 66 20 157/92 H 09/26/18 07:59 36.5 C 73 73 18 144/94 H 144/94 H BP Pulse Ox 09/26/18 15:55 162/86 H 99 09/26/18 15:45 136/81 97 09/26/18 15:38 149/87 H 96 09/26/18 12:56 94 09/26/18 12:23 95 09/26/18 10:08 99 09/26/18 09:13 95 09/26/18 07:59 95 Pain Intensity Left Leg: Pain Intensity: 3 Transfer of Care Handoff Completed per policy Notes Mental Status: alert / awake / arousable and participated in evaluation Patient Amnestic to Procedure: Yes Nausea / Vomiting: adequately controlled Pain: adequately controlled Airway Patency, RR, SpO2: stable & adequate BP & HR: stable & adequate Hydration State: stable & adequate Anesthetic Complications: no major complications apparent and Pt Satisfied with anesthetic care
[2018-09-26] MEDS: fentaNYL citrate 100 MCG/2 ML VIAL IV PRN ×2 (16:13→16:18)
[2018-09-26] MEDS ORDERED: LORazepam 1 MG/2 ML VIAL IV PRN (16:54)
[2018-09-26] MEDS ORDERED: ACETAMINOPHEN 325 MG TAB PO PRN (16:54)
[2018-09-26] MEDS ORDERED: MAGNESIUM HYDROXIDE SUSP 30 ML UDC PO PRN (16:54)
[2018-09-26] MEDS ORDERED: OXYCODONE HCL IR 5 MG TAB (IMMEDIATE RELEASE) PO PRN (16:54)
[2018-09-26] MEDS ORDERED: DO NOT ADMINISTER FLU VACCINE PRN (16:54)
[2018-09-26] MEDS ORDERED: HYDROmorphone INJ 0.5 MG/0.5 ML SYR IV PRN (16:54)
[2018-09-26] MEDS ORDERED: LORazepam 1 MG TAB PO PRN (16:54)
[2018-09-26] MEDS ORDERED: DO NOT ADMINISTER PNEUMOCOCCAL VACCINE PRN (16:54)
[2018-09-26] MEDS ORDERED: BACLOFEN 10 MG TAB PO PRN (16:54)
[2018-09-26] MEDS: LACTATED RINGER'S 1,000 ML IV SCH (18:38)
[2018-09-26] MEDS: KETOROLAC 30 MG/ML VIAL IV SCH ×2 (18:38→23:36)
[2018-09-26] MEDS: dexAMETHasone 6 MG in SYRINGE 0 ML IV SCH (21:39)
[2018-09-26] MEDS: CEFAZOLIN 2000MG 2,000 MG/15 ML SYR IV SCH (21:39)
[2018-09-26] MEDS: GABAPENTIN 100 MG CAP PO SCH (21:40)
[2018-09-26] MEDS: DOCUSATE SODIUM 100 MG CAP PO SCH (21:40)
[2018-09-27] MEDS: LACTATED RINGER'S 1,000 ML IV SCH (06:00)
[2018-09-27] MEDS: dexAMETHasone 6 MG in SYRINGE 0 ML IV SCH (06:01)
[2018-09-27] MEDS: KETOROLAC 30 MG/ML VIAL IV SCH (06:01)
[2018-09-27] MEDS: CEFAZOLIN 2000MG 2,000 MG/15 ML SYR IV SCH (06:01)
[2018-09-27] MEDS: DOCUSATE SODIUM 100 MG CAP PO SCH (08:57)
[2018-09-27] MEDS: GABAPENTIN 100 MG CAP PO SCH (08:57)
--- NOTE | 2018-09-27 12:48 | Discharge Summary ---
Date of Service September 27, 2018 Admission HPI Per Admitting Provider This is a 63-year-old male well-known to me that presents with marked decline in status. He does have a known herniated nucleus pulposis L2-3 on the left approximately 3 weeks ago. This was creating some radicular pain. He was treating it nonoperatively and had an epidural injection performed last week. Unfortunately this morning he had a marked decline in status. He had an immediate onset of severe pain affecting the left anterior thigh. The pain does not extend below the knee. It involves the back buttock as well. Right lower extremity symptomatic. He notes significant strength deficits involving the le ft quad. He is required IV narcotics this morning to control his symptoms. He denies any specific trauma fall or event. He denies any perineal numbness. Principal Diagnosis Herniated was pulposis L2-3 with free fragment and radiculopathy. Discharge Data Allergies Allergy/AdvReac Type Severity Reaction Status Date / Time cheese Allergy Severe SHARP Verified 09/26/18 10:50 CHEESE: HIVES AND SOB No Known Drug Allergies Allergy Mild . Verified 09/26/18 10:50 Procedures Performed Operation Date: 09/26/18 09:25 Actual Procedures p L2-L3 Left Laminectomy(Left) - Giovani Laboy DO Ordered Studies 09/26/18 FL fluoroscopy <1hr Routine FL spine 1V any level Routine 09/26/18 10:28 MR lumbar spine wo con Stat Hospital Course (1) Lumbar back pain with radiculopathy affecting left lower extremity: Patient underwent lumbar laminotomy tolerated this well was taken to orthopedic for postoperative. Postop day #1 his symptoms were improved strength improved ambulating halls without difficulty. Subsequent discharge home. Discharge orders and instructions found on the chart for further review. Total Time Total Time Spent Total Time Spent (In Minutes): 20 minutes Discharge Plan Discharge Items Patient Disposition: Home - Self-Care Reason For Visit: leg & back pain Discharge Diagnosis: hnp lumbar Discharge Goals: Decrease discomfort Activity: Per 'Additional Instructions' section Non-emergency contact: Primary Care Provider Call non-emergency contact if: you have any medication questions Follow-up/Referrals: Scout Markham [Primary Care Provider] - Diet: Regular Addtl Provider Instructions: ACTIVITY RECOMMENDATIONS: SELF CARE INSTRUCTIONS AFTER A LAMINECTOMY 1. No prolonged sitting (less than 30 minutes for the first 3 weeks after surgery). 2. No bending, lifting more than 5 pounds, or twisting (roll like a log when turning in bed). 3. You may shower 3 days after surgery if no drainage from wound. Thoroughly dry wound. Do not soak in the tub. 4. Please walk as much as you can for exercise. Gradually increase the distance that you walk as your endurance increases. 5. You may drive in 7-10 days if you are comfortable and no longer requiring pain medications. SPECIAL CARE INSTRUCTIONS: VERY IMPORTANT TO READ AND REVIEW A. Your surgical incision has been closed with a cosmetic suture under the skin that will dissolve in about 6 weeks. In 14 days, you can use a pair of clean scissors and cut the suture that is left outside of the skin at the ends of your incision. B. Complications are uncommon, but please contact us if you have any signs or symptoms of: 1. wound infection (fever higher than 102.5 degrees F, redness, separation of wound, drainage, or increasing pain from the incision) 2. blood clots in legs (pain, swelling, redness and warmth in legs) 3. urinary tract infection (fever higher than 102.5 degrees, burning upon urination or increased frequency of urination) 4. nerve problems (inability to walk on your toes or heels, numbness, loss of bowel or bladder control) 5. any other symptoms that concern you. C. Please call the office at if you have any concerns or questions about your operation or recovery. MANAGING PAIN AFTER SPINAL SURGERY 1. Narcotic medication is intended for short-term use and will be provided for surgical pain. Surgical pain usually lasts for a period of 4-6 weeks. Narcotic medication includes Percocet, Vicodin, Darvocet, Tylenol #3 or Lortab. 2. Longer-term pain is more appropriately treated with non-narcotic medication such as Tylenol ES. 3. Muscle spasm is not appropriately treated with narcotics. Muscle relaxers such as Soma, Flexeril or Skelaxin can be used along with Tylenol ES. 4. Remember that we all live with some "aches and pains". This is not unusual or uncommon after an injury or as we get older. 5. We will provide appropriate medication within the normal guidelines of their prescribed use. We will also be very cautious and aware of potential abuse and extended duration of patients' medication needs. 6. Please allow 2-3 days to process refills. Prescriptions will not be mailed but must be picked up at the office. FOLLOW UP VISIT: Keep your scheduled follow-up appointment. Any questions, please call the office at . Prescriptions: New oxycodone 5 mg Tablet 5 mg PO Q4H PRN (Reason: Pain) Qty: 20 RF: 0 Continued naproxen sodium [Aleve] 220 mg capsule 220 mg PO BID PRN (Reason: Pain) RF: 0 baclofen 10 mg tablet 10 mg PO BID PRN (Reason: pain/spasm) Qty: 60 RF: 0 gabapentin 100 mg capsule 200 mg PO TID Qty: 180 RF: 2 Stand-Alone Forms: [facility], [facility] Discharge Orders: Discharge Order (Routine); Ordered 09/27/18 Ordered By: Giovani Laboy Admission Data Admit Date/Time: 09/26/18 15:22 Attending Provider: Giovani Laboy Admit Provider: Giovani Laboy Primary Care Provider: Scout Markham Service: Surgical Services Other Interventions: Discharge Summary Assessment (RN) Last Done: 09/27/18 08:17 DC Date/Time DO NOT enter until pt leaves facility: 09/27/18 09:46
[2018-09-28] MEDS ORDERED: BISACODYL 5 MG TABEC PO PRN (06:00)
== END 2018-09-27 09:46 | disposition home or self-care (01) | DRG 519 ==
LOC: ED 07:59 → OR 12:38 → 3E 15:22